=== PATIENT | female | born 1975 | race Caucasian/White ===

== ENCOUNTER → 2017-09-26 | Emergency (ER) | payer OTHER ==
[~2017-09-26] VITALS: Ht 170.2 cm; Wt 88.5 kg
== END | disposition home or self-care (01) ==
LOC: ER 14:24
DX: S93.401A Sprain of unspecified ligament of right ankle, initial encounter (principal); X50.3XXA Overexertion from repetitive movements, initial encounter; Y93.01 Activity, walking, marching and hiking; Y92.89 Other specified places as the place of occurrence of the external cause; Y99.8 Other external cause status